=== PATIENT | male | born 2005 | race Two or more races ===

== ENCOUNTER 2024-02-26 09:37 | Emergency (ER) | payer BC ==
[~2024-02-26] VITALS: Ht 167.6 cm; Wt 81.6 kg
[2024-02-26 10:21] VITALS: BP 111/60; TEMP 97.8
[2024-02-26] MEDS ORDERED: IBUP-1490 PO (13:01)
[2024-02-26 13:22] VITALS: O2SAT 100
== END 2024-02-26 13:23 | disposition home or self-care (01) ==
LOC: ER 09:37
DX: M79.671 Pain in right foot (principal)
CPT/HCPCS: 73630-TC